=== PATIENT | female | born 1985 | race Two or more races ===

== ENCOUNTER → 2022-05-15 | Day surgery (SDC) | payer MEDICAID, OTHER ==
[~2022-05-15] VITALS: Ht 152.4 cm; Wt 68.1 kg
[~2022-05-15] MED LIST: GLYCOPYRROLATE 0.2 MG/ML 1ML VIAL ONE; HYDR-4902 PO; HYDROmorphone HCL 2 MG/ML VL/or syr IV ONE; KETOROLAC TROMETH 30 MG/ML 1ML VIAL ONE; LACT. RINGERS/OXYTOCIN 20UNITS 1,000 ML IV ONE; LIDOCAINE 2% (LOCAL ANESTH.) PF 5ml SDV ONE; MORPHINE SULFATE 4 MG/ML SYR/VIAL IV ONE; ONDANSETRON HCL 4 MG/2 ML VIAL IV ONE; ONDANSETRON HCL 4 MG/2 ML VIAL ONE; PHENYLEPHRINE HCL 10 MG/ML VL ONE; PROPOFOL 10 MG/ML 20 ML IV ONE; SODIUM CHLORIDE 0.9% 1,000 ML IV ONE; SODIUM CHLORIDE 0.9% 2,000 ML IV ONE; SODIUM CHLORIDE LOCK 10 ML ONE; TRANEXAMIC ACID 10 ML ONE; ePHEDrine SULFATE 50 MG/ML AMP ONE; fentaNYL CITRATE 100 MCG/2 ML VL ONE
[2022-05-15 14:12] LABS: Basophils # (auto) 0 10 ^3/uL (0-0.2); Basophils % (auto) 0.5 % (0.0-2.0); Eosinophils # (auto) 0.1 10 ^3/uL (0-0.8); Eosinophils % (auto) 1.2 % (0.0-7.0); Hematocrit 38.3 % (36.0-46.0); Hemoglobin 13.2 g/dL (12.2-16.2); Lymphocytes # (auto) 2.4 10 ^3/uL (0.4-5.4); Lymphocytes % (auto) 25.5 % (10.0-50.0); Mean Corpuscular Hemoglobin 29.8 pg (28.0-32.0); Mean Corpuscular Hgb Conc. 34.5 g/dL (32.0-36.0); Mean Corpuscular Volume 86.3 fL (80.0-100.0); Monocytes # (auto) 0.7 10 ^3/uL (0-1.3); Monocytes % (auto) 7.9 % (0.0-12.0); Neutrophils # (auto) 6.1 10 ^3/uL (1.6-8.6); Neutrophils % (auto) 64.9 % (37.0-80.0); Nucleated Red Blood Cells % 0.1 %; Red Blood Cells 4.44 10^6/uL (4.0-5.20); Red Cell Distribution Width 13.1 % (11.8-14.3); White Blood Cell 9.3 10^3/uL (4.4-10.8)
[2022-05-15 14:28] LABS: INR 0.93 (0.9-1.15); Partial Thromboplastin Time 26.8 sec (24.6-33.4)
[2022-05-15 14:37] LABS: Albumin 3.2 g/dL (3.4-5.0); Bilirubin, Total 0.2 mg/dL (0.2-1.0); Calcium 8.2 mg/dL (8.5-10.1); Total Protein 6.3 g/dL (6.4-8.2)
[2022-05-15 16:33] LABS: Hematocrit 26.9 % (36.0-46.0)
[2022-05-15 16:34] LABS: Hemoglobin 9.3 g/dL (12.2-16.2)
[2022-05-15 19:23] VITALS: BP 108/62
== END | disposition home or self-care (01) ==
LOC: ER 13:14 → EDBD 13:14 → SUR 13:15
PROVIDERS: ATTEND Obstetrics & Gynecology Obstetrics
DX: O03.4 Incomplete spontaneous abortion without complication (principal); E66.3 Overweight; J45.909 Unspecified asthma, uncomplicated
CPT/HCPCS: 36415; 59812; 76856; 80053; 85014; 85018; 85025; 85610; 85730; 86850; 86900; 86901; 87426; 93005; 96361; 96365; 96366; 96375; 96376; 99285; J1170; J1885; J2001; J2270; J2370; J2405; J2590; J2704

== ENCOUNTER 2022-06-27 11:51 | Inpatient (IN) | payer MEDICAID ==
[~2022-06-27] VITALS: Ht 154.9 cm; Wt 73.1 kg
[~2022-06-27 11:51] MED LIST changes: -GLYCOPYRROLATE 0.2 MG/ML 1ML VIAL ONE; -HYDROmorphone HCL 2 MG/ML VL/or syr IV ONE; -KETOROLAC TROMETH 30 MG/ML 1ML VIAL ONE; -LACT. RINGERS/OXYTOCIN 20UNITS 1,000 ML IV ONE; -LIDOCAINE 2% (LOCAL ANESTH.) PF 5ml SDV ONE; -MORPHINE SULFATE 4 MG/ML SYR/VIAL IV ONE; -ONDANSETRON HCL 4 MG/2 ML VIAL IV ONE; -ONDANSETRON HCL 4 MG/2 ML VIAL ONE; -PHENYLEPHRINE HCL 10 MG/ML VL ONE; -PROPOFOL 10 MG/ML 20 ML IV ONE; -SODIUM CHLORIDE 0.9% 1,000 ML IV ONE; -SODIUM CHLORIDE 0.9% 2,000 ML IV ONE; -SODIUM CHLORIDE LOCK 10 ML ONE; -TRANEXAMIC ACID 10 ML ONE; -ePHEDrine SULFATE 50 MG/ML AMP ONE; -fentaNYL CITRATE 100 MCG/2 ML VL ONE
[2022-06-27] MEDS ORDERED: SODIUM CHLORIDE 0.9% 1,000 ML IV ONE ×2 (12:00)
[2022-06-27 12:13] LABS: Basophils # (auto) 0 10 ^3/uL (0-0.2); Basophils % (auto) 0.3 % (0.0-2.0); Eosinophils # (auto) 0 10 ^3/uL (0-0.8); Hemoglobin 10.9 g/dL (12.2-16.2); Monocytes # (auto) 0.3 10 ^3/uL (0-1.3); Monocytes % (auto) 2.1 % (0.0-12.0); Neutrophils # (auto) 11.6 10 ^3/uL (1.6-8.6); Red Cell Distribution Width 15.7 % (11.8-14.3); White Blood Cell 12.6 10^3/uL (4.4-10.8)
[2022-06-27 12:15] LABS: Hematocrit 34.3 % (36.0-46.0); Lymphocytes # (auto) 0.6 10 ^3/uL (0.4-5.4); Lymphocytes % (auto) 5.1 % (10.0-50.0); Mean Corpuscular Hemoglobin 24.8 pg (28.0-32.0); Mean Corpuscular Hgb Conc. 31.7 g/dL (32.0-36.0); Mean Corpuscular Volume 78.1 fL (80.0-100.0); Neutrophils % (auto) 92.5 % (37.0-80.0); Red Blood Cells 4.39 10^6/uL (4.0-5.20)
[2022-06-27 12:35] LABS: Albumin 3.7 g/dL (3.4-5.0); Calcium 8.8 mg/dL (8.5-10.1); Potassium 4.1 mmol/L (3.5-5.1)
[2022-06-27 12:37] LABS: Bilirubin, Total 0.6 mg/dL (0.2-1.0); Total Protein 7.1 g/dL (6.4-8.2)
[2022-06-27] MEDS ORDERED: ONDANSETRON HCL 4 MG/2 ML VIAL IV ONE (13:45)
[2022-06-27] MEDS ORDERED: MORPHINE SULFATE INJ 2 MG/ml SYRG IV ONE (13:45)
[2022-06-27] MEDS ORDERED: KETOROLAC TROMETH 30 MG/ML 1ML VIAL IV ONE ×2 (14:15)
[2022-06-27] MEDS ORDERED: HYDROmorphone HCL 2 MG/ML VL/or syr IV ONE (16:00)
[2022-06-27] MEDS ORDERED: FUROSEMIDE 40 MG/4 ML VIAL IV ONE (16:00)
[2022-06-27] MEDS ORDERED: cefTRIAXone 1GM/50ML D5W 50 ML IV ONE (16:45)
[2022-06-27] MEDS ORDERED: ACETAMINOPHEN 325 MG TAB PO PRN (16:45)
[2022-06-27] MEDS: SODIUM CHLORIDE 0.9% 1,000 ML IV SCH (16:45)
[2022-06-27] MEDS ORDERED: TAMSULOSIN HYDROCHLORIDE 0.4 MG CAP PO ONE (16:45)
[2022-06-27] MEDS: HYDROcodone-ACET 5/325MG TAB PO PRN ×2 (17:19→22:43)
[2022-06-27 18:27] LABS: Urine Specific Gravity 1.029 (1.001-1.035)
[2022-06-27 18:28] LABS: Urine Blood 3+ /uL (Negative)
[2022-06-28] MEDS: MORPHINE SULFATE INJ 2 MG/ml SYRG IV PRN ×4 (00:55→21:25)
[2022-06-28] MEDS: SODIUM CHLORIDE 0.9% 1,000 ML IV SCH ×4 (00:58→21:54)
[2022-06-28] MEDS: HYDROcodone-ACET 5/325MG TAB PO PRN (04:04)
[2022-06-28] MEDS ORDERED: SENNA 8.6 MG TAB PO ONE (04:15)
[2022-06-28] MEDS ORDERED: DOCUSATE SOD 100 MG CAP PO ONE (04:15)
[2022-06-28] MEDS ORDERED: DOCUSATE SOD 100 MG CAP PO PRN (04:15)
[2022-06-28 04:26] LABS: Basophils # (auto) 0 10 ^3/uL (0-0.2); Eosinophils # (auto) 0 10 ^3/uL (0-0.8); Hemoglobin 9.2 g/dL (12.2-16.2); Lymphocytes # (auto) 1.2 10 ^3/uL (0.4-5.4); Monocytes # (auto) 0.7 10 ^3/uL (0-1.3); Monocytes % (auto) 8.9 % (0.0-12.0); Neutrophils # (auto) 6.2 10 ^3/uL (1.6-8.6); Neutrophils % (auto) 75.6 % (37.0-80.0); White Blood Cell 8.2 10^3/uL (4.4-10.8)
[2022-06-28 04:29] LABS: Basophils % (auto) 0.5 % (0.0-2.0); Eosinophils % (auto) 0.4 % (0.0-7.0); Hematocrit 28.5 % (36.0-46.0); Lymphocytes % (auto) 14.6 % (10.0-50.0); Mean Corpuscular Hemoglobin 25.3 pg (28.0-32.0); Mean Corpuscular Hgb Conc. 32.1 g/dL (32.0-36.0); Mean Corpuscular Volume 78.8 fL (80.0-100.0); Red Blood Cells 3.62 10^6/uL (4.0-5.20); Red Cell Distribution Width 15.5 % (11.8-14.3)
[2022-06-28 04:40] LABS: Calcium 7.9 mg/dL (8.5-10.1); Potassium 3.7 mmol/L (3.5-5.1)
[2022-06-28] MEDS: cefTRIAXone 1GM/50ML D5W 50 ML IV SCH (08:44)
[2022-06-28] MEDS: TAMSULOSIN HYDROCHLORIDE 0.4 MG CAP PO SCH (10:15)
[2022-06-28] MEDS: ENOXAPARIN SOD 40 MG/0.4 ML SYRINGE SC SCH (10:16)
[2022-06-28] MEDS: SENNA 8.6 MG TAB PO SCH (21:54)
[2022-06-28 22:00] VITALS: BP 101/61
[2022-06-28 22:21] VITALS: BP 101/61
[2022-06-29] MEDS: MORPHINE SULFATE INJ 2 MG/ml SYRG IV PRN ×2 (03:33→08:36)
[2022-06-29 05:00] VITALS: BP 111/59
[2022-06-29] MEDS: SODIUM CHLORIDE 0.9% 1,000 ML IV SCH ×3 (06:16→17:40)
[2022-06-29] MEDS: cefTRIAXone 1GM/50ML D5W 50 ML IV SCH (08:35)
[2022-06-29] MEDS: TAMSULOSIN HYDROCHLORIDE 0.4 MG CAP PO SCH (08:36)
[2022-06-29] MEDS: ENOXAPARIN SOD 40 MG/0.4 ML SYRINGE SC SCH (08:36)
[2022-06-29] MEDS ORDERED: KETOROLAC TROMETH 30 MG/ML 1ML VIAL IV PRN (09:00)
[2022-06-29] MEDS ORDERED: MANNITOL FTV 25% 12.5 GM/50 ML 50 ML IV ONE (09:00)
[2022-06-29 09:04] VITALS: BP 98/59
[2022-06-29] MEDS ORDERED: KETOROLAC TROMETH 30 MG/ML 1ML VIAL IV SCH (12:00)
[2022-06-29] MEDS: KETOROLAC TROMETH 30 MG/ML 1ML VIAL IV SCH ×3 (12:16→23:46)
[2022-06-29 12:37] VITALS: BP 104/63
[2022-06-29 16:47] VITALS: BP 109/68
[2022-06-29] MEDS ORDERED: PROPYLTHIOURACIL 50 MG PO SCH (18:00)
[2022-06-29 22:00] VITALS: BP 100/62
[2022-06-29] MEDS: SENNA 8.6 MG TAB PO SCH (22:39)
[2022-06-29] MEDS ORDERED: TEMAZEPAM 15 MG CAP PO ONE (23:30)
[2022-06-30] MEDS: SODIUM CHLORIDE 0.9% 1,000 ML IV SCH ×3 (00:20→13:40)
[2022-06-30] MEDS: HYDROcodone-ACET 5/325MG TAB PO PRN (04:34)
[2022-06-30 05:00] VITALS: BP 104/71
[2022-06-30] MEDS: PROPYLTHIOURACIL 50 MG PO SCH ×2 (06:25→11:45)
[2022-06-30] MEDS: KETOROLAC TROMETH 30 MG/ML 1ML VIAL IV SCH ×2 (06:25→11:32)
[2022-06-30] MEDS: cefTRIAXone 1GM/50ML D5W 50 ML IV SCH (08:41)
[2022-06-30] MEDS: ENOXAPARIN SOD 40 MG/0.4 ML SYRINGE SC SCH (08:42)
[2022-06-30] MEDS: TAMSULOSIN HYDROCHLORIDE 0.4 MG CAP PO SCH (08:42)
[2022-06-30 09:00] VITALS: BP 113/69
[2022-06-30] MEDS ORDERED: CIPR-173 PO (11:12)
[2022-06-30] MEDS ORDERED: TRAM50TA2 PO (11:12)
[2022-06-30 12:38] VITALS: BP 96/58
== END 2022-06-30 13:59 | disposition home or self-care (01) | DRG 720 ==
LOC: ER 11:51 → OVERFLOW 16:35 → TELE-WESTW 06-28 21:04 → WEST WING 06-28 21:08 → TELE-WESTW 06-28 22:36
PROVIDERS: ADMIT Registered Nurse; ATTEND Family Medicine
DX: A41.9 Sepsis, unspecified organism (principal); N13.6 Pyonephrosis; E03.9 Hypothyroidism, unspecified; Z20.822 Contact with and (suspected) exposure to COVID-19; E86.0 Dehydration; N20.2 Calculus of kidney with calculus of ureter
CPT/HCPCS: 36415; 74176; 76775; 80048; 80053; 81003; 84702; 85025; 87040; 87086; 87426; 96361; 96374; 96375; G0378; J0696; J1885; J2405